=== PATIENT | female | born 1965 | race Caucasian/White ===

== ENCOUNTER 2017-09-01 22:27 | Observation (INO) | payer OTHER, MEDICARE ==
[~2017-09-01] VITALS: Ht 162.6 cm; Wt 65.0 kg
[2017-09-01 22:41] VITALS: BP 138/71; PULSE 85; RESP 20; TEMP 98.6; O2SAT 94
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
[2017-09-01 23:43] LABS: HEMATOCRIT 42.9 % (35.0-46.0); HEMOGLOBIN 14.8 GM/DL (11.6-15.3); MEAN CELL VOLUME 96.8 FL (80.0-100.0); MEAN CORPUSCULAR HEMOGLOBIN 33.5 PG (27.0-34.0); MEAN CORPUSCULAR HGB CONC 34.6 % (32.0-36.0); MEAN PLATELET VOLUME 9.3 FL (7.0-11.0); PLATELET COUNT 146 TH/MM3 (150-450); RED BLOOD COUNT 4.43 MIL/MM3 (4.00-5.30); RED CELL DISTRIBUTION WIDTH 13.7 % (11.6-17.2); WHITE BLOOD COUNT 8.2 TH/MM3 (4.0-11.0)
[2017-09-02 00:07] LABS: ALKALINE PHOSPHATASE 60 U/L (45-117); TOTAL BILIRUBIN ADULT 0.3 MG/DL (0.2-1.0); TOTAL PROTEIN 5.4 GM/DL (6.4-8.2)
[2017-09-02 00:12] LABS: ALBUMIN 3.2 GM/DL (3.4-5.0); ALT (GPT) 32 U/L (10-53); AST (GOT) 28 U/L (15-37); BICARBONATE 25.5 MEQ/L (21.0-32.0); BLOOD UREA NITROGEN 12 MG/DL (7-18); CALCIUM 8.2 MG/DL (8.5-10.1); CHLORIDE 107 MEQ/L (98-107); CREATININE 0.55 MG/DL (0.50-1.00); GLOMERULAR FILTRATION RATE 116 ML/MIN (>89); GLUCOSE,RANDOM 119 MG/DL (74-106); SODIUM (NA) 142 MEQ/L (136-145)
[2017-09-02 00:18] LABS: INTERNATIONAL NORMALIZED RATIO 1.2 RATIO; PROTHROMBIN TIME - PATIENT 11.8 SEC (9.8-11.6)
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
[2017-09-02] MEDS ORDERED: IOHEXOL 350 MG/ML 10 ML VIAL (for RAD DIAG) IVCONTRAST ONE (00:39)
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
[2017-09-02] MEDS ORDERED: MORPHINE SULFATE 4 MG/ML INJ IV PUSH ONE (02:15)
[2017-09-02] MEDS ORDERED: NICOTINE 21 MG/24 HR PATCH T-DERMAL ONE (02:15)
[2017-09-02] MEDS ORDERED: METOCLOPRAMIDE HCL 10 MG/2 ML VIAL IV PUSH ONE (02:15)
--- NOTE | 2017-09-02 03:12 | RADRPT ---
EXAM DATE: 09/02/2017 2:52 AM EDT AGE/SEX: 52 years / Female INDICATIONS: Fall. Left wrist pain. CLINICAL DATA: This is the patient's initial encounter. Patient reports that signs and symptoms have been present for 1 day and indicates a pain score of 6/10. MEDICAL/SURGICAL HISTORY: None. None. COMPARISON: No prior exams available for comparison. FINDINGS: Bony structures are intact and in normal alignment. Joints are intact without dislocation or signifi cant arthropathy. Osseous density is normal. Soft tissues are unremarkable. No radiopaque foreign bodies seen. CONCLUSION: Negative left wrist series. Electronically signed by: Parish Phipps MD 09/02/2017 3:11 AM EDT
[2017-09-02 05:40] VITALS: BP 120/59; PULSE 82; RESP 15; O2SAT 95
[2017-09-02] MEDS ORDERED: HYDROmorphone HCL 2 MG TAB PO PRN (06:00)
[2017-09-02 06:14] VITALS: BP 124/64; PULSE 76; RESP 16; TEMP 98.5; O2SAT 96
[2017-09-02] MEDS ORDERED: MORPHINE SULFATE 4 MG/ML INJ IV PUSH PRN (06:15)
[2017-09-02] MEDS ORDERED: COLA100C5 PO (07:59)
[2017-09-02 08:00] VITALS: BP 129/64; PULSE 70; RESP 18; TEMP 97.4; O2SAT 96
[2017-09-02] MEDS ORDERED: DOCUSATE SODIUM 50 MG/SENNA 8.6 MG TAB PO SCH (09:00)
[2017-09-02] MEDS ORDERED: FAMOTIDINE 20 MG TAB PO SCH (09:00)
--- NOTE | 2017-09-02 10:57 | RADRPT ---
EXAM DATE: 09/02/2017 10:28 AM EDT AGE/SEX: 52 years / Female INDICATIONS: Short of breath and some chest pain. CLINICAL DATA: This is the patient's initial encounter. Patient reports that signs and symptoms have been present for 1 day and indicates a pain score of 3/10. MEDICAL/SURGICAL HISTORY: None. None. COMPARISON: No prior exams available for comparison. FINDINGS: Mildly prominent cardiac silhouette without failure or infiltrate. No pneumothorax. Previous right cl avicular fracture. CONCLUSION: Mild commentated cardiomegaly without pneumothorax or infiltrate. Electronically signed by: Aryan Uribe MD 09/02/2017 10:56 AM EDT
[2017-09-02 12:00] VITALS: BP 125/58; PULSE 68; RESP 16; TEMP 98.3; O2SAT 94
[2017-09-02] MEDS ORDERED: WALKER WHEELS/F1 MIS (13:35)
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
== END 2017-09-02 15:02 | disposition home or self-care (01) ==
LOC: NEPC 22:27 → NEDA 09-02 02:25 → NEPFCDU 09-02 05:57
PROVIDERS: ADMIT Surgery; ATTEND Surgery
DX: S27.322A Contusion of lung, bilateral, initial encounter (principal); R07.81 Pleurodynia; M79.662 Pain in left lower leg; J44.9 Chronic obstructive pulmonary disease, unspecified; Z79.82 Long term (current) use of aspirin; I34.1 Nonrheumatic mitral (valve) prolapse; V81 Occupant of railway train or railway vehicle injured in transport accident; Y93.I1 Activity, roller coaster riding; M25.532 Pain in left wrist; I51.7 Cardiomegaly
CPT/HCPCS: 70450; 71046; 71260; 72125; 73110; 73590; 74177; 80053; 85027; 85610; 85730; 96374; 96375; 96376; 97163; 99285; G0378; G8987; G8988; J2270; J2765; Q9967